=== PATIENT | female | born 2000 | race Caucasian/White ===

== ENCOUNTER 2019-01-20 13:13 | Emergency (ER) | payer OTHER ==
[~2019-01-20] VITALS: Ht 152.4 cm; Wt 78.0 kg
[2019-01-20 14:08] LABS: HEMATOCRIT 37.8 % (37.0-47.0); IMMATURE GRANULOCYTES 0.3 % (0.0-5.0); MEAN CELL VOLUME 86.9 fL CALC (80.0-100.0); MEAN CORPUSCULAR HGB 29.9 pG CALC (26.0-32.0); MEAN CORPUSCULAR HGB CONC 34.4 g/L CALC (32.0-36.0); NEUT# 4.56 thou/uL (2.00-7.15); RED BLOOD COUNT 4.35 mill/uL (4.20-5.60); RED CELL DISTRI WIDTH 12.2 % (11.5-15.5)
[2019-01-20 14:09] LABS: URINE BILIRUBIN - DIPSTICK NEGATIVE (NEGATIVE); URINE BLOOD DIPSTICK NEGATIVE (NEGATIVE); URINE COLOR YELLOW; URINE GLUCOSE - DIPSTICK NEGATIVE (NEGATIVE); URINE KETONE NEGATIVE (NEGATIVE); URINE LEUK ESTERASE TRACE (NEGATIVE); URINE NITRITE - DIPSTICK NEGATIVE (Negative); URINE PH 6.5 (4.5-8.0); URINE PROTEIN - DIPSTICK TRACE mg/dL (NEG-TRACE); URINE SPECIFIC GRAVITY 1.025
[2019-01-20 14:23] LABS: ALBUMIN 4.3 g/dL (3.2-5.0); ALKALINE PHOSPHATASE 73 u/l (38-126); ANION GAP 16 (6-22 (CALC)); BILIRUBIN, TOTAL 0.4 mg/dL (0.0-1.4); BUN 7 mg/dL (8-21); BUN/CREATININE RATIO 14 (12-20 (CALC)); CARBON DIOXIDE 20 mmol/l (22-30); CHLORIDE 104 mmol/l (95-108); CREATININE 0.5 mg/dL (0.5-1.0); GFR > 60 ML/MIN (>=60 (CALC)); GFR FOR AFR.AMER. > 60 ML/MIN (>=60 (CALC)); POTASSIUM 3.7 mmol/l (3.5-5.1); SGOT/AST 17 u/l (14-36); SODIUM 137 mmol/l (137-146); TOTAL PROTEIN 7.2 g/dL (6.3-8.2)
[2019-01-20 16:10] VITALS: BP 105/66
== END 2019-01-20 16:25 | disposition home or self-care (01) ==
LOC: ED 13:13
PROVIDERS: Emergency Medicine
DX: O21.9 Vomiting of pregnancy, unspecified (principal); Z3A.10 10 weeks gestation of pregnancy; K92.0 Hematemesis

== ENCOUNTER 2019-05-17 14:01 | Emergency (ER) | payer OTHER ==
[~2019-05-17] VITALS: Ht 152.4 cm; Wt 75.0 kg
[2019-05-17 14:38] LABS: HEMATOCRIT 32.1 % (37.0-47.0); HEMOGLOBIN 11.2 g/dl (12.0-16.0); IMMATURE GRANULOCYTES 0.5 % (0.0-5.0); MEAN CELL VOLUME 89.4 fL CALC (80.0-100.0); MEAN CORPUSCULAR HGB 31.2 pG CALC (26.0-32.0); MEAN CORPUSCULAR HGB CONC 34.9 g/L CALC (32.0-36.0); NEUT# 8.34 thou/uL (2.00-7.15); RED BLOOD COUNT 3.59 mill/uL (4.20-5.60); RED CELL DISTRI WIDTH 12.5 % (11.5-15.5)
[2019-05-17] MEDS ORDERED: CALNA PO (14:42)
[2019-05-17] MEDS ORDERED: [UNRECOGNIZED DRUG - REMARK] (14:43)
[2019-05-17 14:53] LABS: ANION GAP 12 (6-22 (CALC)); BUN 5 mg/dL (8-21); BUN/CREATININE RATIO 10 (12-20 (CALC)); CARBON DIOXIDE 19 mmol/l (22-30); CHLORIDE 108 mmol/l (95-108); CREATININE 0.5 mg/dL (0.5-1.0); GFR > 60 ML/MIN (>=60 (CALC)); GFR FOR AFR.AMER. > 60 ML/MIN (>=60 (CALC)); POTASSIUM 3.8 mmol/l (3.5-5.1); SODIUM 136 mmol/l (137-146)
[2019-05-17 14:57] LABS: URINE BILIRUBIN - DIPSTICK NEGATIVE (NEGATIVE); URINE BLOOD DIPSTICK NEGATIVE (NEGATIVE); URINE COLOR YELLOW; URINE GLUCOSE - DIPSTICK NEGATIVE (NEGATIVE); URINE KETONE TRACE mg/dL (NEGATIVE); URINE NITRITE - DIPSTICK NEGATIVE (Negative); URINE PROTEIN - DIPSTICK NEGATIVE (NEG-TRACE); URINE SPECIFIC GRAVITY 1.025
[2019-05-17 15:03] LABS: URINE LEUK ESTERASE SMALL (NEGATIVE)
[2019-05-17 15:13] LABS: URINE BACTERIA FEW hpf; URINE SQUAMOUS EPITHELIAL CELL FEW EPI/hpf (0-FEW)
[2019-05-17 15:14] VITALS: BP 113/71
== END 2019-05-17 15:14 ==
LOC: ED 14:01
DX: O60.02 Preterm labor without delivery, second trimester (principal); Z3A.26 26 weeks gestation of pregnancy

== ENCOUNTER 2021-06-19 00:40 | Emergency (ER) | payer OTHER ==
[~2021-06-19] VITALS: Ht 152.4 cm; Wt 83.0 kg
[~2021-06-19 00:40] MED LIST: CALNA PO; [UNRECOGNIZED DRUG - REMARK]
[2021-06-19 01:26] VITALS: BP 116/70
== END 2021-06-19 01:30 | disposition home or self-care (01) ==
LOC: ED 00:40
DX: S61.012A Laceration without foreign body of left thumb without damage to nail, initial encounter (principal); W26.0XXA Contact with knife, initial encounter; Y93.G3 Activity, cooking and baking

== ENCOUNTER 2021-06-28 12:00 | Emergency (ER) | payer OTHER ==
[~2021-06-28] VITALS: Ht 152.4 cm; Wt 85.0 kg
[2021-06-28 13:00] VITALS: BP 122/68
== END 2021-06-28 13:00 | disposition home or self-care (01) ==
LOC: ED 12:00
DX: S61.012D Laceration without foreign body of left thumb without damage to nail, subsequent encounter (principal); X58.XXXD Exposure to other specified factors, subsequent encounter

== ENCOUNTER 2021-12-14 18:17 | Emergency (ER) | payer OTHER ==
[~2021-12-14] VITALS: Ht 152.4 cm; Wt 180.0 kg
[2021-12-14 18:26] VITALS: BP 154/94
[2021-12-14 19:26] VITALS: BP 113/60
[2021-12-14 19:31] VITALS: BP 112/72
[2021-12-14 19:35] LABS: IMMATURE GRANULOCYTES 0.2 % (0.0-5.0); MEAN CELL VOLUME 93.2 fL CALC (80.0-100.0); MEAN CORPUSCULAR HGB 30.8 pG CALC (26.0-32.0); NEUT# 5.49 thou/uL (2.00-7.15); RED BLOOD COUNT 4.39 mill/uL (4.20-5.60); RED CELL DISTRI WIDTH 12.6 % (11.5-15.5)
[2021-12-14 19:36] LABS: URINE BILIRUBIN - DIPSTICK NEGATIVE (NEGATIVE); URINE BLOOD DIPSTICK NEGATIVE (NEGATIVE); URINE COLOR YELLOW; URINE GLUCOSE - DIPSTICK NEGATIVE (NEGATIVE); URINE KETONE NEGATIVE (NEGATIVE); URINE LEUK ESTERASE NEGATIVE (NEGATIVE); URINE PROTEIN - DIPSTICK NEGATIVE (NEG-TRACE); URINE SPECIFIC GRAVITY >=1.030; URINE UROBILINOGEN - DIPSTICK 0.2 E.U./dL (0.2)
[2021-12-14 19:39] LABS: HEMATOCRIT 40.9 % (37.0-47.0); HEMOGLOBIN 13.5 g/dl (12.0-16.0)
[2021-12-14 19:40] LABS: URINE NITRITE - DIPSTICK NEGATIVE (Negative)
[2021-12-14 19:46] LABS: ALBUMIN 4.7 g/dL (3.2-5.0); ALKALINE PHOSPHATASE 89 u/l (38-126); AMYLASE 68 u/l (30-110); ANION GAP 14 (6-22 (CALC)); BILIRUBIN, TOTAL 0.3 mg/dL (0.0-1.4); BUN 13 mg/dL (7-17); BUN/CREATININE RATIO 18 (12-20 (CALC)); CARBON DIOXIDE 22 mmol/l (22-30); CHLORIDE 106 mmol/l (95-108); CREATININE 0.8 mg/dL (0.5-1.0); GFR > 60 ML/MIN (>=60 (CALC)); GFR FOR AFR.AMER. > 60 ML/MIN (>=60 (CALC)); LIPASE 120 u/l (23-300); POTASSIUM 3.6 mmol/l (3.5-5.1); SODIUM 138 mmol/l (137-146); TOTAL PROTEIN 8.3 g/dL (6.3-8.2)
[2021-12-14 19:52] LABS: SGOT/AST 37 u/l (14-36)
[2021-12-14 20:01] VITALS: BP 115/65
[2021-12-14] MEDS ORDERED: ULTRAM50 M1 PO (23:01)
[2021-12-14 23:07] VITALS: BP 115/65
== END 2021-12-14 23:15 | disposition home or self-care (01) ==
LOC: ED 18:17
PROVIDERS: Emergency Medicine
DX: K52.9 Noninfective gastroenteritis and colitis, unspecified (principal)
CPT/HCPCS: Q9967

== ENCOUNTER 2021-12-17 16:08 | Emergency (ER) | payer OTHER ==
[~2021-12-17] VITALS: Ht 152.4 cm; Wt 85.0 kg
[~2021-12-17 16:08] MED LIST changes: +ULTRAM50 M1 PO
[2021-12-17] MEDS ORDERED: PREDNISONE50 MG PO (16:20)
[2021-12-17 17:06] LABS: HEMATOCRIT 42.2 % (37.0-47.0); HEMOGLOBIN 13.9 g/dl (12.0-16.0); IMMATURE GRANULOCYTES 0.1 % (0.0-5.0); MEAN CELL VOLUME 92.7 fL CALC (80.0-100.0); MEAN CORPUSCULAR HGB 30.5 pG CALC (26.0-32.0); MEAN CORPUSCULAR HGB CONC 32.9 g/dL CAL (32.0-36.0); NEUT# 4.72 thou/uL (2.00-7.15); RED BLOOD COUNT 4.55 mill/uL (4.20-5.60); RED CELL DISTRI WIDTH 12.6 % (11.5-15.5)
[2021-12-17 17:17] LABS: ALBUMIN 4.6 g/dL (3.2-5.0); ALKALINE PHOSPHATASE 86 u/l (38-126); ANION GAP 14 (6-22 (CALC)); BILIRUBIN, TOTAL 0.2 mg/dL (0.0-1.4); BUN 12 mg/dL (7-17); BUN/CREATININE RATIO 18 (12-20 (CALC)); CARBON DIOXIDE 25 mmol/l (22-30); CHLORIDE 105 mmol/l (95-108); CREATININE 0.7 mg/dL (0.5-1.0); GFR > 60 ML/MIN (>=60 (CALC)); GFR FOR AFR.AMER. > 60 ML/MIN (>=60 (CALC)); LIPASE 97 u/l (23-300); POTASSIUM 3.8 mmol/l (3.5-5.1); SGOT/AST 34 u/l (14-36); SODIUM 140 mmol/l (137-146)
[2021-12-17 17:27] LABS: URINE BILIRUBIN - DIPSTICK NEGATIVE (NEGATIVE); URINE BLOOD DIPSTICK NEGATIVE (NEGATIVE); URINE COLOR YELLOW; URINE GLUCOSE - DIPSTICK NEGATIVE (NEGATIVE); URINE KETONE TRACE mg/dL (NEGATIVE); URINE LEUK ESTERASE NEGATIVE (NEGATIVE); URINE PROTEIN - DIPSTICK NEGATIVE (NEG-TRACE); URINE SPECIFIC GRAVITY 1.025; URINE UROBILINOGEN - DIPSTICK 0.2 E.U./dL (0.2)
[2021-12-17 17:29] LABS: URINE NITRITE - DIPSTICK NEGATIVE (Negative)
[2021-12-17 17:48] VITALS: BP 123/82
[2021-12-17 18:01] VITALS: BP 115/79
[2021-12-17 18:31] VITALS: BP 107/81
[2021-12-17 19:00] VITALS: BP 125/89
[2021-12-17] MEDS ORDERED: NAPROXEN500 MG PO (21:09)
[2021-12-17 21:33] VITALS: BP 125/89
== END 2021-12-17 21:43 | disposition home or self-care (01) ==
LOC: ED 16:08
PROVIDERS: Family Medicine
DX: R21 Rash and other nonspecific skin eruption (principal); M79.10 Myalgia, unspecified site

== ENCOUNTER 2022-03-20 14:34 | Emergency (ER) | payer OTHER ==
[~2022-03-20] VITALS: Ht 152.4 cm; Wt 82.0 kg
[~2022-03-20 14:34] MED LIST changes: +NAPROXEN500 MG PO; +PREDNISONE50 MG PO
[2022-03-20 14:43] VITALS: BP 149/80
[2022-03-20 14:45] VITALS: BP 117/74
[2022-03-20] MEDS ORDERED: BACTRIM DS1 TAB PO (14:48)
[2022-03-20] MEDS ORDERED: OMNICEF300 M1 PO (14:48)
[2022-03-20] MEDS ORDERED: DIFLUCAN150 MG PO (14:48)
[2022-03-20 14:53] VITALS: BP 149/80
== END 2022-03-20 15:01 | disposition home or self-care (01) ==
LOC: ED 14:34
DX: S90.862A Insect bite (nonvenomous), left foot, initial encounter (principal); L03.116 Cellulitis of left lower limb; W57.XXXA Bitten or stung by nonvenomous insect and other nonvenomous arthropods, initial encounter